=== PATIENT | female | born 1985 | race Caucasian/White ===

== ENCOUNTER 2017-10-03 02:00 | Emergency (ER) | payer SELFPAY ==
[~2017-10-03] VITALS: Ht 170.2 cm; Wt 75.5 kg
[2017-10-03 02:02] VITALS: BP 127/64; TEMP 98.4
[2017-10-03 03:20] VITALS: PULSE 93
== END 2017-10-03 03:20 | disposition home or self-care (01) ==
LOC: COL.ER 02:00
DX: S30.0XXA Contusion of lower back and pelvis, initial encounter (principal); S39.82XA Other specified injuries of lower back, initial encounter; E03.9 Hypothyroidism, unspecified; Z98.51 Tubal ligation status; Z90.89 Acquired absence of other organs; Z87.891 Personal history of nicotine dependence; W18.39XA Other fall on same level, initial encounter